=== PATIENT | male | born 1980 | race Caucasian/White ===

== ENCOUNTER → 2017-07-04 | Outpatient (CLI) | payer BC ==
--- NOTE | 2017-07-04 09:29 | DIAGNOSTIC IMAGING REPORT ---
KUB CLINICAL HISTORY: 36 years-old Male presenting with R10.9 Flank [id number]. TECHNIQUE: Single supine view of the abdomen was obtained. COMPARISON: None. FINDINGS: Moderate stool burden in the right colon. Gas and stool degrade evaluation of the renal shadows. Allowing for this, no calcification projects over the kidneys or along the courses of the ureters. Nonobstructive bowel gas pattern. No gross pneumoperitoneum. Lung bases clear. Osseous structures normal. IMPRESSION: 1. No radiographic evidence of nephrolithiasis allowing for gas and stool. Electronically signed by: Aureliano Prieto M.D. 07/04/2017 9:28 AM Dictated Date/Time: 07/04/2017 9:27 AM
--- NOTE | 2017-07-04 09:34 | DIAGNOSTIC IMAGING REPORT ---
L-SPINE MIN 4 VIEWS ROUTINE HISTORY: 36 years-old Male R10.9 Flank pain acute low back pain. No reported trauma. COMPARISON: KUB of same day TECHNIQUE: 5 views of the lumbar spine FINDINGS: 5 lumbar type vertebral segments are present. No distal spondylolysis or spondylolisthesis. There is no acute fracture or dislocation. No significant degenerative changes. Soft tissues are unremarkable. There is moderate stool burden of the ascending colon. IMPRESSION: No acute bony abnormality identified. No significant degenerative changes. The above report was generated using voice recognition software. It may contain grammatical, syntax or spelling errors. Electronically signed by: True Mark M.D. 07/04/2017 9:33 AM Dictated Date/Time: 07/04/2017 9:30 AM
== END | disposition home or self-care (01) ==
LOC: C.RAD1850 08:54
PROVIDERS: ATTEND Internal Medicine
DX: R10.9 Unspecified abdominal pain (principal)